=== PATIENT | female | born 1940 | race Caucasian/White ===

== ENCOUNTER 2017-06-18 20:14 | Inpatient (IN) | payer OTHER ==
[2017-06-18 21:04] LABS: #Eosinphils 0.2 thou/uL (0.0-0.7); #Lymphocytes 2.4 thou/uL (1.20-3.40); #Monocytes 0.7 thou/uL (0.11-0.59); #Neutrophils 5.7 thou/uL (1.40-6.50); %Eosinophils 2.1 % (0.0-10.0); %Lymphocytes 26.9 % (21.0-51.0); %Monocytes 7.2 % (0.0-10.0); Hematocrit 33.3 % (36.0-47.0); Mean Platelet Volume 9.2 fL (7.4-10.4); Red Blood Cell (RBC) Count 3.85 mill/uL (4.20-5.40)
[2017-06-18 21:26] LABS: ALT (SGPT) 16 U/L (8-55); AST (SGOT) 33 U/L (5-34); Alkaline Phosphatase 59 U/L (40-150); Anion Gap 13 mmol/L (10-20); BUN (Urea Nitrogen) 12 mg/dL (9.8-20.1); Bilirubin, Total 0.4 mg/dL (0.2-1.2); Calc. Creatinine Clearance 0 mL/min (70-130); Calcium 8.2 mg/dL (7.8-10.44); Carbon Dioxide 31 mmol/L (23-31); Chloride 100 mmol/L (98-107); Estimated GFR-MDRD 57; Globulin 3.2 g/dL (2.4-3.5); Protein, Total 6.6 g/dL (6.0-8.3)
[2017-06-18 21:29] LABS: Troponin I 0.032 ng/mL (< 0.028)
--- NOTE | 2017-06-18 21:32 | RAD ---
CHEST ONE VIEW: History: Chest pain. Comparison: 08-02-14 FINDINGS: Cardiac silhouette is magnified by projection. Pulmonary vasculature is unremarkable. Mediastinum is midline with post-operative changes and a dual-lead left subclavian cardiac electronic device. No lob ar consolidation or pneumothorax are apparent. Overlying defibrillator patches obscure detail. IMPRESSION: No active cardiopulmonary abnormalities are demonstrated. POS: [facility]
[2017-06-18] MEDS ORDERED: Potassium Chloride 20 MEQ TAB ONE (23:07)
[2017-06-18] MEDS ORDERED: Potassium Chloride 20 MEQ/100 ML PREMIX BAG ONE (23:07)
[2017-06-18] MEDS ORDERED: Magnesium Sulfate 2 GM/100 ML BAG ONE (23:25)
[2017-06-19 00:47] VITALS: BMI 37.0
[2017-06-19] MEDS ORDERED: Acetaminophen 325 MG TAB PO PRN (00:51)
[2017-06-19] MEDS ORDERED: Ondansetron ODT 4 MG TAB PO PRN (00:51)
[2017-06-19 01:26] LABS: Troponin I 0.054 ng/mL (< 0.028)
[2017-06-19] MEDS: Zolpidem Tartrate 5 MG TAB PO PRN ×2 (01:47→20:28)
--- NOTE | 2017-06-19 02:54 | HP-2 ---
DATE OF SERVICE: 06/18/2017 DATE OF ADMISSION: 06/18/2017 LOCATION: [facility] in [place], [place]. COSIGNER: Kamala Odell M.D. CODE STATUS: FULL CODE. PRIMARY CARE PHYSICIAN: Hafsa Bajwa M.D. ATTENDING PHYSICIAN: Kamala Odell M.D. RESIDENT PHYSICIAN: Mario Polanco DO HISTORY: Provided by the patient. SPECIALIST: Cardiology, Amanda Diaz M.D. CHIEF COMPLAINT: Weakness, fatigue, possible syncopal episode. HISTORY OF PRESENT ILLNESS: The patient is a 77-year-old female with a past medical history of CHF, hyperlipidemia who presents with a history of feeling weak, tired, and a possible syncopal episode. The patient states she was sitting at home and had to go to the bathroom, was walking to the commode and the next thing she remembers she was sitting on the commode. Denies trauma, denies fall. After this episode, the patient called 911 at which point she was taken by EMS to [facility]. En route, the patient was noted to have bradycardic episodes in the high 20s up to 37 and was pale and c lammy at that time. She does have a history of a pacemaker, which was placed approximately 5 years a go and has had no issues with the pacemaker to this time. Additionally, she does take furosemide sherman ly and is supposed to be taking a potassium supplement; however, she reports that she has not taken a ny potassium supplement in over a week. In the ER, she was noted to have numerous PVCs on her EKG an d had a heart rate in the upper 30s. The ER physician did contact [employer], the maker of the pacer device, who stated that with the numerous PVCs, it can short circuit the pacemaker. Once the patien t was lying comfortably in bed, the PVCs resolved and her rate returned to 60-70 with complete resolu tion of her symptoms. In the ER, the patient was given 2 grams of mag sulfate and 40 mEq of potassiu m chloride. PAST MEDICAL HISTORY: As stated above. PAST SURGICAL HISTORY: Left total knee replacement, hysterectomy, and bilateral oophorectomy. ALLERGIES: The patient is allergic to ASPIRIN, IBUPROFEN. MEDICATIONS: 1. Zaleplon 10 mg p.o. at bedtime. 2. Warfarin 5 mg p.o. daily. 3. Rosuvastatin 5 mg daily. 4. Propranolol 80 mg daily. 5. Potassium chloride 40 mEq p.o. every other day. 6. Zofran 4 mg p.o. q.8 h. as needed. 7. Singulair 10 mg p.o. at bedtime. 8. Lisinopril 40 mg p.o. daily. 9. Hydrocodone 1-2 tabs p.o. q.4 h. p.r.n. for pain. 10. Gabapentin 3 capsules p.o. at bedtime. 11. Furosemide, unknown dose 2 tabs p.o. q.a.m. as needed. 12. Liliana 90 mg p.o. daily. 13. Nexium 40 mg p.o. b.i.d. 14. Lovenox 60 mg subcu b.i.d. 15. Multaq 400 mg p.o. b.i.d. with meals. 16. Diltiazem 240 mg p.o. daily. 17. Cetirizine 10 mg p.o. daily. FAMILY HISTORY: Deferred. SOCIAL HISTORY: Nonsmoker, nondrinker, no drugs. REVIEW OF SYSTEMS: General: The patient denies fever, chills, night sweats. Complains of fatigue. Eyes: Denies visio n changes or eye pain. ENT: Denies nasal congestion, rhinorrhea, sore throat. Respiratory: Denies cough, congestion, shortness of breath or exercise intolerance. Cardiovascular: Denies chest pain, palpitations, edema, and orthopnea. Gastrointestinal: The patient complains of intermittent nausea , but reports this is a chronic issue. Denies vomiting, diarrhea, constipation, abdominal pain, GI b leeding. Genitourinary: Denies incontinence, dysuria, polyuria. Skin: No rashes or lesions. Musc uloskeletal: Denies pain, tenderness, arthritis, or arthralgias. Neurologic: Does complain of weak ness, fatigue, and questionable syncopal episode. PHYSICAL EXAMINATION: VITAL SIGNS: Blood pressure 157/67, pulse 60 beats per minute. Respiratory rate 18 breaths per hugo te, pulse ox 90% on 1.5 liters nasal cannula. Current weight 86 kilograms. GENERAL: The patient is alert and oriented, no acute distress. Well-developed, well-nourished, and appropriately interactive. EYES: Pupils are equal, round, and reactive to light with accommodation. Extraocular muscles are in tact. Conjunctivae is within normal limits. ENT: Oropharynx is within normal limits. NECK: Supple, without lymphadenopathy. No thyromegaly. No evidence for JVD or hepatojugular reflux . CARDIOVASCULAR: Regular rate and rhythm. No murmurs, rubs or gallops. Radial pulse 2+. Pedal puls e 2+. RESPIRATORY: Normal effort, no retractions. LUNGS: Clear to auscultation bilaterally. SKIN: Warm and dry. No cyanosis. ABDOMEN: Soft, nontender, normoactive bowel sounds, no masses, distention or organomegaly. EXTREMITIES: No clubbing, cyanosis. There is 2+ bilateral pitting edema of the lower extremities. MUSCULOSKELETAL: Structure within normal limits. Tone within normal limits. NEUROLOGIC: No focal deficits. GCS 15. PSYCHIATRIC: Appropriately interactive. LABORATORY DATA: Hemoglobin 10.7, hematocrit 33.3, white blood cell count 9.0, platelets 176. Sodiu m 141, potassium 2.7, chloride 100, bicarbonate 31, BUN 12, creatinine 0.95, glucose 178, calcium 8.2 , total protein 6.6, albumin 3.4, AST 33, ALT 16, alkaline phosphatase 59, total bilirubin 0.4, magne sium 1.1. Troponin I 0.032, CK-MB 1. BNP 490.3. Chest x-ray showed no acute cardiopulmonary process. EKG showed numerous PVCs which subsequently res olved on later EKG. ASSESSMENT AND PLAN: 1. Bradycardia. We will admit to telemetry. Continue to monitor overnight. This is likely seconda ry to the numerous premature ventricular contractions that were present previously. The premature ve ntricular contractions are likely caused by the patient's hypokalemia and hypomagnesemia and we will replace those accordingly. The pacer device was interrogated and was found to be functioning properl y. We will consult Cardiology in the morning. We will check a TSH, phosphorus, magnesium and a fast ing lipid profile in the morning. 2. Hypokalemia, 40 mEq of potassium was provided in the ER. We will recheck potassium level 4 hours after the last dose was administered. 3. Hypomagnesemia. Magnesium 1.1. The patient was given 2 grams of mag sulfate in the ER. We will recheck 4 hours after the last dose of magnesium was given. 4. Congestive heart failure. BNP 490.3. A 2+ pitting edema in bilateral lower extremities. The milvia birgit reports that she had an echocardiogram performed in February of this year at Dr. Diaz' office. W e will attempt to get those records in the morning. Currently, the patient shows no signs of acute h eart failure exacerbation. 5. Elevated troponins 0.032. We will trend troponins. This is likely secondary to demand ischemia from the bradycardic episode. We will trend. 6. Anemia. Hemoglobin 10.7, this is stable from her prior admission. We will repeat a CBC and tren d and watch for any acute changes. DISPOSITION AND LENGTH OF HOSPITAL STAY: Greater than or equal to 2 days. Patient is stable. Symptomatic medication will be provided. History and physical exam as well as management discussed with Dr. Kamala Odell who agrees with the above history and physical exam as well as assessment and plan, unless otherwise noted in her add endum.
[2017-06-19 05:27] LABS: #Lymphocytes 2.1 thou/uL (1.20-3.40); #Monocytes 0.4 thou/uL (0.11-0.59); #Neutrophils 3.5 thou/uL (1.40-6.50); %Basophils 0.7 % (0.0-1.0); %Eosinophils 0.5 % (0.0-10.0); %Lymphocytes 34.9 % (21.0-51.0); %Monocytes 6.2 % (0.0-10.0); Hematocrit 31.6 % (36.0-47.0); Mean Platelet Volume 9.4 fL (7.4-10.4); Red Blood Cell (RBC) Count 3.63 mill/uL (4.20-5.40)
[2017-06-19 05:32] LABS: Hemoglobin A1c 5.7 % (4.0-6.0)
[2017-06-19 05:46] LABS: PTT 48.7 SEC (22.9-36.1); Prothrombin Time 31.3 SEC (12.0-14.7)
[2017-06-19 05:49] LABS: Troponin I 0.057 ng/mL (< 0.028)
[2017-06-19 05:55] LABS: Anion Gap 9 mmol/L (10-20); BUN (Urea Nitrogen) 11 mg/dL (9.8-20.1); Calc. Creatinine Clearance 78 mL/min (70-130); Calcium 8.3 mg/dL (7.8-10.44); Carbon Dioxide 33 mmol/L (23-31); Chloride 102 mmol/L (98-107); Cholesterol 110 mg/dl (< 200 Desired); Estimated GFR-MDRD 70; LDL Cholesterol, Calculated 58 mg/dL; Magnesium 1.8 mg/dL (1.6-2.6); Phosphorus 3.2 mg/dL (2.3-4.7)
--- NOTE | 2017-06-19 06:15 | PDOC.FM ---
- Subjective Subjective: Pt seen at bedside in NAD. NO overnight, pt denies CP, SOB, abd pain, NVD. - Objective MAR Reviewed: Yes Vital Signs & Weight: Vital Signs (12 hours) Temp Pulse Resp BP Pulse Ox 06/19/17 04:45 60 18 92 L 06/19/17 00:45 98.3 F 60 18 92 L 06/19/17 00:20 98.3 F 60 18 157/67 H 92 L Weight Weight 86.001 kg Result Diagrams: 06/19/17 04:18 06/19/17 04:18 <Petros Durant - Last Filed: 06/19/17 07:41> - Objective Vital Signs & Weight: Vital Signs (12 hours) Temp Pulse Resp BP BP Pulse Ox 06/19/17 15:30 98.2 F 74 16 175/79 H 94 L 06/19/17 12:00 98 F 64 16 167/72 H 94 L 06/19/17 08:32 73 181/77 H 06/19/17 08:00 97.5 F L 62 18 191/74 H 93 L 06/19/17 04:45 60 18 92 L Weight Weight 86.001 kg I&O: 06/18/17 06/19/17 06/20/17 06:59 06:59 06:59 Intake Total 480 Output Total 400 Balance 80 Result Diagrams: 06/19/17 04:18 06/19/17 12:06 <Kamala Odell - Last Filed: 06/19/17 16:25> Phys Exam - Physical Examination Constitutional: NAD HEENT: moist MMs Neck: full ROM Respiratory: no wheezing, clear to auscultation bilateral Cardiovascular: no rub bradycardic on exam, HR 55 Gastrointestinal: soft, positive bowel sounds Musculoskeletal: pulses present Neurological: non-focal, moves all 4 limbs Psychiatric: normal affect, A&O x 3 Skin: cap refill <2 seconds <Petros Durant - Last Filed: 06/19/17 07:41> Dx/Plan (1) Bradycardia Code(s): R00.1 - BRADYCARDIA, UNSPECIFIED Status: Acute Plan: -pt presented for feelings of weakness and possible presyncopal episode while at home in bathroom -per reports, pt had transient bradycardia in EMS transport with HR 20s-37 -pt has hx of CHF, HTN, afib, AVR on coumadin -on presentation pt was found to have K of 2.5 and Mg 1.1 which were repleted -etiology of bradycardia possibly related to chronic conditions (CHF, cardiomegaly, HTN, etc.), pacemaker device failure, medication SE (pt on beta blockers, opiates, and sleep agents at home), or autonomically mediated via vasovagal response in bathroom -pacemaker interrogated and reported to be functionally properly -pt admitted to telemetry for continued monitoring. overnight pt had HR range from 30s-60s with majority in 50-60 range. -hold home propranolol, diltiazem, opiates, multaq, & gabapentin -review of EKG appears to r/o second or third degree block -consider cardiology consult this AM -continue to monitor and replete electrolytes as needed (2) Hypokalemia Code(s): E87.6 - HYPOKALEMIA Status: Acute Plan: -2.7 on presentation up to 3.4 this AM -replete via PO KCl and repeat BMP this afternoon (3) Hypomagnesemia Code(s): E83.42 - HYPOMAGNESEMIA Status: Acute Plan: -1.1 on presentation, up to 1.8 s/p repletion -recheck this afternoon (4) Elevated troponin Code(s): R74.8 - ABNORMAL LEVELS OF OTHER SERUM ENZYMES Status: Acute Plan: -slightly upward trend -continue to trend -no obvious EKG or symptomatic concerns for acute MN (5) H/O mechanical aortic valve replacement Code(s): Z95.2 - PRESENCE OF PROSTHETIC HEART VALVE Status: Chronic Plan: -on warfarin, therapeutic INR 2.9 (6) Pacemaker Code(s): Z95.0 - PRESENCE OF CARDIAC PACEMAKER Status: Acute (7) HLD (hyperlipidemia) Code(s): E78.5 - HYPERLIPIDEMIA, UNSPECIFIED Status: Chronic (8) HTN (hypertension) Code(s): I10 - ESSENTIAL (PRIMARY) HYPERTENSION Status: Chronic QualifierTitle: Hypertension type: unspecified Qualified Code(s): I10 - Essential (primary) hypertension Plan: -slightly elevated this AM but will hold antiHTN agents at this time and continue to monitor closely -can likely continue lisinopril if BP continue to be elevated - Plan Plan: dispo: Pt doing well. Review of panel monitor shows occasional episodes of bradycardia into 30s. Will consider cardiology consult this AM, attempt to obtain recent records from [facility]'s office and continue to monitor closely. Recheck electrolytes this afternoon. <Petros Durant - Last Filed: 06/19/17 07:41> Attending Addendum - Attending Addendum I personally evaluated the patient and discussed the management with Dr. Durant. I agree with the History, Examination, Assessment and Plan documented above with any addition or exceptions noted below. The patient was bradycardic on arrival. PVC's have slowed and heart rate is up to 50-60's. Hold bp meds that control heart rate. Cardiology will be consulted. <Kamala Odell - Last Filed: 06/19/17 16:25>
[2017-06-19] MEDS ORDERED: Potassium Chloride 20 MEQ TAB PO SCH (06:30)
[2017-06-19 07:38] LABS: Troponin I 0.047 ng/mL (< 0.028)
[2017-06-19] MEDS ORDERED: hydrALAZINE 20 MG/ML VIAL SLOW IVP SCH (08:00)
[2017-06-19] MEDS: Famotidine 20 MG TAB PO SCH ×2 (08:31→20:28)
[2017-06-19] MEDS: Lisinopril 20 MG TAB PO SCH (08:48)
[2017-06-19] MEDS ORDERED: Non-Formulary Item 1 EACH (Lisinopril [Lisinopril] 40 MG) PO SCH (09:00)
--- NOTE | 2017-06-19 11:00 | ADD-HP ---
DATE OF SERVICE: 06/19/2017 CHIEF COMPLAINT: Syncope, weakness, and fatigue. HISTORY OF PRESENT ILLNESS: The patient is a 77-year-old female with past medical history of CHF, hy perlipidemia, and atrial fibrillation with pacemaker placement who presented to the ER after possible syncopal episode. She states she was sitting up on the couch watching TV when she started feeling l martín she was going to pass out. She noted that she may need to go to restroom. She started walking i n that way and the next thing she remember she woke up was she was on the toilet. She does not remem adenike hitting anything at that time. EMS was called and noted that her pulse was in the 20s and 30s. She had a couple of episodes where she felt like she was going to pass out again. The patient was br ought to the ER. I noticed that she was having multiple PVCs on her EKG. Per the ER records, they c ontacted [employer] who said that she is having multiple PVCs, but her pacemaker may not be able to p ick that up and that is why she is still low. The patient's heart rate came up to the 50s and 60s, a nd she has been stable overnight. Cardiology is being consulted for further evaluation. We will cur rently hold her medications that are for rate control. We have restarted her lisinopril this morning . We will await further management after Cardiology recommendations. Dr. Polanco and I have personal ly discussed the history, physical, assessment, and plan for this patient and I have repeated pertine nt portions with myself. I agree with this documentation appreciated. Please see his dictation.
[2017-06-19 12:50] LABS: Anion Gap 12 mmol/L (10-20); BUN (Urea Nitrogen) 11 mg/dL (9.8-20.1); Calc. Creatinine Clearance 80 mL/min (70-130); Calcium 8.9 mg/dL (7.8-10.44); Carbon Dioxide 29 mmol/L (23-31); Chloride 103 mmol/L (98-107); Estimated GFR-MDRD 72; Magnesium 1.9 mg/dL (1.6-2.6)
[2017-06-19] MEDS ORDERED: hydrALAZINE 20 MG/ML VIAL SLOW IVP PRN (13:45)
--- NOTE | 2017-06-19 14:50 | CON ---
DATE OF CONSULTATION: 06/19/2017 REASON FOR CONSULTATION: Presyncope. HISTORY OF PRESENT ILLNESS: Ms. Dickey is a pleasant 77-year-old woman who is a patient of Dr. Adriel Diaz. She states she became lightheaded and dizzy. She states she went to the bathroom where she f elt she is going to pass out. She has had difficulty with low blood pressure recently. She is on di uretic therapy. EMS was called and she was subsequently admitted. Pacemaker was interrogated and did not suggest significant dysrhythmias. PAST MEDICAL HISTORY: Atrial fibrillation, hyperlipidemia, hypertension, status post pacemaker impla ntation, mechanical AVR, bilateral salpingo-oophorectomy, peptic ulcer disease, acid reflux, migraine headaches, total abdominal hysterectomy, hemorrhoidectomy, lumpectomy, breast cancer, seasonal aller gies. ALLERGIES: None. HOME MEDICATIONS: Include probiotic, Zyrtec, Sonata, ICaps, propranolol, Crestor, Coumadin, Singulai r, Lasix, lisinopril, Fexofenadine, Nexium, Sawyer 3, Multaq. REVIEW OF SYSTEMS: Ten point review of systems is reviewed and as above, otherwise negative. PHYSICAL EXAMINATION: GENERAL: Patient is a pleasant female who is in no acute distress. The patient appears her stated a ge. VITAL SIGNS: Blood pressure 167/72, pulse 64, temperature 98. NEUROLOGIC: The patient is alert and oriented times 3 with no focal neurologic deficits. HEENT: Sclerae without icterus. Mouth has moist mucous membranes with normal pallor. NECK: No JVD. Carotid upstroke brisk. No bruits bilaterally. LUNGS: Clear to auscultation with unlabored respirations. BACK: No scoliosis or kyphosis. CARDIAC: Regular rate and rhythm with normal S1 and S2. No S3 or S4 noted. No significant rubs, mu rmurs, thrills, or gallops noted throughout the precordium. PMI is not displaced. There is no jesus alberto ternal heave. ABDOMEN: Soft, nontender, nondistended. No peritoneal signs present. No hepatosplenomegaly. No ab normal striae. EXTREMITIES: 2+ femoral and 2+ dorsalis pedis pulses. No cyanosis, clubbing, or edema. SKIN: No gross abnormalities. PERTINENT LABORATORY DATA: Initial potassium of 2.7 and magnesium of 1.1. IMPRESSION: 1. Presyncope. 2. Chronic atrial fibrillation. RECOMMENDATIONS: From a CV standpoint, it does not appear this is dysrhythmia. This may be related to hypomagnesemia versus hypokalemia versus volume contraction. She has been on Lasix therapy in the past. Her last echo in the office dated 05/12/2017 with LVEF 50%-55%. Moderate to severe diastolic dysfunction in addition to mild pulmonary hypertension. At this point, we will treat blood pressure aggressively. We will try to hold diuretic therapy for now. We will continue to monitor over the n ext 24 hours. If stable, would be okay for discharge and follow up as an outpatient.
[2017-06-19] MEDS ORDERED: Furosemide 20 MG TAB PO PRN (19:42)
[2017-06-19] MEDS ORDERED: Loratadine 10 MG TAB PO SCH (20:00)
[2017-06-19] MEDS: Montelukast Sodium 10 mg Tablet PO SCH (20:27)
[2017-06-19] MEDS: Gabapentin 300 MG CAP PO SCH (20:28)
[2017-06-19] MEDS: Fish Oil 1,000 MG CAP PO SCH (20:30)
[2017-06-19] MEDS ORDERED: ZALEPLON 10 MG PO SCH (21:00)
[2017-06-20 05:33] LABS: Prothrombin Time 24.8 SEC (12.0-14.7)
[2017-06-20 06:06] LABS: Anion Gap 9 mmol/L (10-20); BUN (Urea Nitrogen) 9 mg/dL (9.8-20.1); Calc. Creatinine Clearance 87 mL/min (70-130); Calcium 8.8 mg/dL (7.8-10.44); Carbon Dioxide 30 mmol/L (23-31); Chloride 106 mmol/L (98-107); Estimated GFR-MDRD 77
[2017-06-20] MEDS ORDERED: Potassium Chloride 20 MEQ TAB PO SCH (08:00)
[2017-06-20] MEDS: Lisinopril 20 MG TAB PO SCH (08:10)
[2017-06-20] MEDS: Lactinex Tablet PO SCH (08:10)
[2017-06-20] MEDS: Fish Oil 1,000 MG CAP PO SCH ×2 (08:11→20:00)
[2017-06-20] MEDS: Famotidine 20 MG TAB PO SCH ×2 (08:11→20:02)
[2017-06-20] MEDS ORDERED: Dronedarone HCl 400 MG TAB PO SCH ×2 (10:30→20:00)
--- NOTE | 2017-06-20 12:29 | PDOC.FM ---
- Subjective Subjective: Patient reports doing well overnight, no complaints. Denies CP, SOB, weakness, N /V. - Objective MAR Reviewed: Yes Vital Signs & Weight: Vital Signs (12 hours) Temp Pulse Resp BP Pulse Ox 06/20/17 11:28 98.1 F 65 18 145/70 H 91 L 06/20/17 10:52 65 06/20/17 08:00 98.1 F 65 18 91 L 06/20/17 07:27 98.1 F 65 18 167/71 H 91 L 06/20/17 04:00 67 18 175/74 H 93 L Weight Weight 87.77 kg I&O: 06/19/17 06/20/17 06/21/17 06:59 06:59 06:59 Intake Total 480 960 Output Total 400 1400 Balance 80 -440 Result Diagrams: 06/19/17 04:18 06/20/17 05:12 <Ravindra Aguayo - Last Filed: 06/20/17 12:27> - Objective Vital Signs & Weight: Vital Signs (12 hours) Temp Pulse Resp BP Pulse Ox 06/20/17 11:28 98.1 F 65 18 145/70 H 91 L 06/20/17 10:52 65 06/20/17 08:00 98.1 F 65 18 91 L 06/20/17 07:27 98.1 F 65 18 167/71 H 91 L Weight Weight 87.77 kg I&O: 06/19/17 06/20/17 06/21/17 06:59 06:59 06:59 Intake Total 480 960 Output Total 400 1400 Balance 80 -440 Result Diagrams: 06/19/17 04:18 06/20/17 05:12 <Kamala Odell - Last Filed: 06/20/17 17:43> Phys Exam - Physical Examination Constitutional: NAD HEENT: moist MMs, oral pharynx no lesions Neck: no JVD, full ROM Respiratory: no wheezing, clear to auscultation bilateral Cardiovascular: RRR, no significant murmur Gastrointestinal: soft, positive bowel sounds Musculoskeletal: pulses present Neurological: normal sensation, moves all 4 limbs Psychiatric: normal affect, A&O x 3 <Ravindra Aguayo - Last Filed: 06/20/17 12:27> Dx/Plan (1) Bradycardia Code(s): R00.1 - BRADYCARDIA, UNSPECIFIED Status: Acute Plan: Cardiology consulted, recs greatly appreciated. Improved overnight, all measurements >60. Will restart diltiazem, multaq and reevaluate VS later today, tomorrow to ensure no bradycardia (2) Elevated troponin Code(s): R74.8 - ABNORMAL LEVELS OF OTHER SERUM ENZYMES Status: Acute (3) Hypokalemia Code(s): E87.6 - HYPOKALEMIA Status: Acute Plan: improved today (4) Hypomagnesemia Code(s): E83.42 - HYPOMAGNESEMIA Status: Acute (5) Pacemaker Code(s): Z95.0 - PRESENCE OF CARDIAC PACEMAKER Status: Acute Plan: has been interrogated and was reported as being normal by cardiology (6) H/O mechanical aortic valve replacement Code(s): Z95.2 - PRESENCE OF PROSTHETIC HEART VALVE Status: Chronic (7) HLD (hyperlipidemia) Code(s): E78.5 - HYPERLIPIDEMIA, UNSPECIFIED Status: Chronic (8) HTN (hypertension) Code(s): I10 - ESSENTIAL (PRIMARY) HYPERTENSION Status: Chronic QualifierTitle: Hypertension type: unspecified Qualified Code(s): I10 - Essential (primary) hypertension - Plan Plan: will plan to monitor closely overnight and reevaluate in the morning. If stable tomorrow morning, possible d/c tomorrow <Ravindra Aguayo - Last Filed: 06/20/17 12:27> Attending Addendum - Attending Addendum I personally evaluated the patient and discussed the management with Dr. Aguayo. I agree with the History, Examination, Assessment and Plan documented above with any addition or exceptions noted below. The patient's heart rate has remained stable but bp is elevated. Will restart diltiazem but monitor today to ensure bradycardia doesn't return. <Kamala Odell - Last Filed: 06/20/17 17:43>
--- NOTE | 2017-06-20 16:57 | PDOC.CTH ---
Cardiology Progress Note - Subjective She is doing well. No new issues or concerns. - Objective Vital Signs Temp Pulse Resp BP Pulse Ox 06/20/17 11:28 98.1 F 65 18 145/70 H 91 L 06/20/17 10:52 65 06/20/17 08:00 98.1 F 65 18 91 L 06/20/17 07:27 98.1 F 65 18 167/71 H 91 L Weight 193 lb 8 oz 06/19/17 06/20/17 06/21/17 06:59 06:59 06:59 Intake Total 480 960 Output Total 400 1400 Balance 80 -440 - Physical Examination General/Neuro: alert & oriented x3, NAD Neck: no JVD present Lungs: unlabored respirations Heart: other: (Irreg) Abdomen: NT/ND Extremities: other: (no edema) - Telemetry Telemetry Rhythm: Underl Afib, paced. - Labs Result Diagrams: 06/19/17 04:18 06/20/17 05:12 Troponin/CKMB CK-MB (CK-2) 1.1 ng/mL (0-6.6) 06/19/17 07:03 Troponin I 0.047 ng/mL (< 0.028) H 06/19/17 07:03 - Assessment/Plan 1. Pre syncope 2. Chronic afib 3. S/P PPM on the past 4. S/P Mechanical AVR PLAN: - Recent echo with normal functioning mechanical AVR - Likely non cardiac cause of presyncope. - No new recs.
[2017-06-20] MEDS ORDERED: Loratadine 10 MG TAB PO SCH (17:00)
[2017-06-20] MEDS ORDERED: Warfarin Sodium 5 MG TAB PO SCH (20:00)
[2017-06-20] MEDS: Gabapentin 300 MG CAP PO SCH (20:02)
[2017-06-20] MEDS: Montelukast Sodium 10 mg Tablet PO SCH (20:03)
[2017-06-20] MEDS: Zolpidem Tartrate 5 MG TAB PO PRN (20:03)
[2017-06-21 06:09] LABS: Prothrombin Time 21.7 SEC (12.0-14.7)
[2017-06-21 06:27] LABS: Anion Gap 9 mmol/L (10-20); BUN (Urea Nitrogen) 10 mg/dL (9.8-20.1); Calc. Creatinine Clearance 77 mL/min (70-130); Calcium 8.9 mg/dL (7.8-10.44); Carbon Dioxide 29 mmol/L (23-31); Chloride 105 mmol/L (98-107); Estimated GFR-MDRD 69
[2017-06-21 07:12] VITALS: BP 187/81; TEMP 98.4
[2017-06-21] MEDS: Lisinopril 20 MG TAB PO SCH (07:59)
[2017-06-21] MEDS: Lactinex Tablet PO SCH (07:59)
[2017-06-21] MEDS: Fish Oil 1,000 MG CAP PO SCH (08:00)
[2017-06-21] MEDS: Famotidine 20 MG TAB PO SCH (08:00)
[2017-06-21] MEDS ORDERED: Dronedarone HCl 400 MG TAB PO SCH (08:00)
--- NOTE | 2017-06-21 09:42 | PDOC.FM ---
- Subjective Subjective: Patient doing well overnight. No complaints or concerns. Endorses voiding/BM. Denies CP, SOB, weakness, N/V, dizziness. - Objective MAR Reviewed: Yes Vital Signs & Weight: Vital Signs (12 hours) Temp Pulse Resp BP Pulse Ox 06/21/17 07:59 84 06/21/17 07:20 98.4 F 84 16 91 L 06/21/17 07:11 98.4 F 84 16 187/81 H 91 L 06/21/17 04:00 98.9 F 91 20 126/62 92 L 06/21/17 00:00 142/67 H Weight Weight 85.865 kg I&O: 06/20/17 06/21/17 06/22/17 06:59 06:59 06:59 Intake Total 960 1300 Output Total 1400 625 Balance -440 675 Result Diagrams: 06/19/17 04:18 06/21/17 05:31 <Ravindra Aguayo - Last Filed: 06/21/17 09:40> - Objective Vital Signs & Weight: Vital Signs (12 hours) Temp Pulse Resp BP Pulse Ox 06/21/17 07:59 84 06/21/17 07:20 98.4 F 84 16 91 L 06/21/17 07:11 98.4 F 84 16 187/81 H 91 L 06/21/17 04:00 98.9 F 91 20 126/62 92 L Weight Weight 85.865 kg I&O: 06/20/17 06/21/17 06/22/17 06:59 06:59 06:59 Intake Total 960 1300 Output Total 1400 625 Balance -440 675 Result Diagrams: 06/19/17 04:18 06/21/17 05:31 <Kamala Odell - Last Filed: 06/21/17 15:24> Phys Exam - Physical Examination Constitutional: NAD HEENT: moist MMs, oral pharynx no lesions Neck: no JVD, full ROM Respiratory: no wheezing, clear to auscultation bilateral Cardiovascular: RRR, no significant murmur Gastrointestinal: soft, non-tender, positive bowel sounds Musculoskeletal: no edema, pulses present Neurological: normal sensation, moves all 4 limbs Psychiatric: normal affect, A&O x 3 Skin: no rash, normal turgor <Ravindra Aguayo - Last Filed: 06/21/17 09:40> Dx/Plan (1) Bradycardia Code(s): R00.1 - BRADYCARDIA, UNSPECIFIED Status: Acute Plan: Cardiology consulted, recs greatly appreciated. HR continues to be >60 while adding multaq and diltiazem. Will plan to d/c home today with instructions to follow up with Dr. Diaz early this week. Patient agreed and said she would call Dr. Diaz tomorrow. (2) Elevated troponin Code(s): R74.8 - ABNORMAL LEVELS OF OTHER SERUM ENZYMES Status: Acute (3) Hypokalemia Code(s): E87.6 - HYPOKALEMIA Status: Acute (4) Hypomagnesemia Code(s): E83.42 - HYPOMAGNESEMIA Status: Acute (5) Pacemaker Code(s): Z95.0 - PRESENCE OF CARDIAC PACEMAKER Status: Acute Plan: has been interrogated and was reported as being normal by cardiology (6) H/O mechanical aortic valve replacement Code(s): Z95.2 - PRESENCE OF PROSTHETIC HEART VALVE Status: Chronic (7) HLD (hyperlipidemia) Code(s): E78.5 - HYPERLIPIDEMIA, UNSPECIFIED Status: Chronic (8) HTN (hypertension) Code(s): I10 - ESSENTIAL (PRIMARY) HYPERTENSION Status: Chronic QualifierTitle: Hypertension type: unspecified Qualified Code(s): I10 - Essential (primary) hypertension <Ravindra Aguayo - Last Filed: 06/21/17 09:40> Attending Addendum - Attending Addendum I personally evaluated the patient and discussed the management with Dr. Aguayo. I agree with the History, Examination, Assessment and Plan documented above with any addition or exceptions noted below. The patient has had no more bradycardia or symptoms or presyncope. She will be discharged today and will f/u with Dr. Diaz. <Kamala Odell - Last Filed: 06/21/17 15:24>
[2017-06-21] MEDS ORDERED: Warfarin Sodium 5 MG TAB PO SCH (17:00)
== END 2017-06-21 09:57 | disposition home or self-care (01) | DRG 310 ==
LOC: ERS 20:14 → 2NO 21:45
PROVIDERS: ADMIT Family Medicine; ATTEND Family Medicine
DX: R00.1 Bradycardia, unspecified (principal); I11.0 Hypertensive heart disease with heart failure; Z95.2 Presence of prosthetic heart valve; I49.3 Ventricular premature depolarization; I48.2 Chronic atrial fibrillation; R74.8 Abnormal levels of other serum enzymes; E83.42 Hypomagnesemia; E78.5 Hyperlipidemia, unspecified; R55 Syncope and collapse; E87.6 Hypokalemia; Z95.0 Presence of cardiac pacemaker; K21.9 Gastro-esophageal reflux disease without esophagitis; Z79.01 Long term (current) use of anticoagulants; R73.9 Hyperglycemia, unspecified; D50.9 Iron deficiency anemia, unspecified
CPT/HCPCS: 36415; 71010; 80048; 80053; 80061; 82553; 83036; 83735; 83880; 84100; 84443; 84484; 85025; 85610; 85730; 93005; 94760; 96365; 96368; A4216; J0360; J3475; J3480

== ENCOUNTER 2017-09-07 08:42 | Outpatient (CLI) | payer OTHER | END 2017-09-07 08:43 | disposition home or self-care (01) | LOC: BICMAMMO 08:42 | PROVIDERS: ATTEND Internal Medicine Hematology & Oncology | DX: Z08 Encounter for follow-up examination after completed treatment for malignant neoplasm (principal); Z85.3 Personal history of malignant neoplasm of breast | CPT/HCPCS: 77066; G0279 ==

== ENCOUNTER 2018-01-05 09:14 | Outpatient (CLI) | payer OTHER ==
[2018-01-05] MEDS ORDERED: ISOVUE-370 76%-LOCM 1 ML ONE (11:24)
== END 2018-01-05 09:15 | disposition home or self-care (01) ==
LOC: BICCT 09:14
PROVIDERS: ATTEND Internal Medicine Cardiovascular Disease
DX: I71.2 Thoracic aortic aneurysm, without rupture (principal); Z95.2 Presence of prosthetic heart valve
CPT/HCPCS: 71275; 74175; 82565

== ENCOUNTER 2018-03-08 09:01 | Outpatient (CLI) | payer OTHER | END 2018-03-08 09:02 | disposition home or self-care (01) | LOC: BICMAMMO 09:01 | PROVIDERS: ATTEND Internal Medicine Hematology & Oncology | DX: Z08 Encounter for follow-up examination after completed treatment for malignant neoplasm (principal); Z85.3 Personal history of malignant neoplasm of breast | CPT/HCPCS: G0279 ==

== ENCOUNTER 2018-07-28 10:46 | Inpatient (IN) | payer OTHER ==
[2018-07-28] MEDS ORDERED: Pantoprazole 40 MG VIAL ONE (12:13)
[2018-07-28] MEDS ORDERED: Ondansetron PF 4 MG/2 ML Vial ONE (12:13)
--- NOTE | 2018-07-28 12:13 | RAD ---
PA AND LATERAL CHEST: Date: 07/28/18 HISTORY: Cough. Abdominal pain. Nausea and vomiting. COMPARISON: 07/16/11. FINDINGS: Dual lead left subclavian cardiac pacemaking device remains in place. Postsurgical changes related to median sternotomy and aortic valve replacement are again seen. Cardiac silhouette is mildly enlarged . Vascular calcifications seen in thoracic aorta. The lungs are clear. There is an area of heterotopi c ossification seen adjacent to the right humeral head. Posterior costophrenic angles are excluded fr om view. IMPRESSION: 1. Mild cardiomegaly without overt CHF. 2. No acute cardiopulmonary process. POS: [facility]
[2018-07-28 12:19] LABS: Bilirubin Negative (Negative); Blood, Urine Negative (Negative); Clarity CLEAR (Clear); Glucose, Urine (Dipstick) Negative (Negative); Leukocyte Negative (Negative); Nitrite Negative (Negative); Protein, Urine (Dipstick) Negative (Neg-Trace); Specific Gravity, Urine 1.012 (1.002-1.036); Urobilinogen 0.2 mg/dL (0.2-1.0)
[2018-07-28 12:40] LABS: #Basophils 0.1 thou/uL (0.0-0.2); #Lymphocytes 1.5 thou/uL (1.20-3.40); #Monocytes 0.3 thou/uL (0.11-0.59); #Neutrophils 8.3 thou/uL (1.40-6.50); %Basophils 0.9 % (0.0-1.0); %Eosinophils 0.3 % (0.0-10.0); %Lymphocytes 14.6 % (21.0-51.0); %Monocytes 3.3 % (0.0-10.0); %Neutrophils 80.9 % (42.0-75.0); Hemoglobin 11.7 g/dL (12.0-16.0); Mean Corpuscular HGB CONC 33.6 g/dL (32.0-36.0); Mean Corpuscular Hemoglobin 30.1 pg (27.0-31.0); Mean Corpuscular Volume 89.7 fL (78.0-98.0); Mean Platelet Volume 9.4 fL (7.4-10.4); Platelet Count 171 thou/uL (130-400); RBC Distribution Width 12.2 % (11.5-14.5); White Blood Cell (WBC) Count 10.2 thou/uL (4.8-10.8)
[2018-07-28 12:44] LABS: PTT 52.3 SEC (22.9-36.1); Prothrombin Time 42.2 SEC (12.0-14.7)
[2018-07-28 12:53] LABS: INR-International Normal Ratio 4.4
[2018-07-28 14:06] LABS: Albumin 4.1 g/dL (3.4-4.8)
[2018-07-28 14:08] LABS: Chloride 108 mmol/L (98-107); Sodium 134 mmol/L (136-145)
[2018-07-28 14:09] LABS: Globulin 3.1 g/dL (2.4-3.5); Glucose 126 mg/dL (83-110); Protein, Total 7.2 g/dL (6.0-8.3)
[2018-07-28 14:10] LABS: Carbon Dioxide 15 mmol/L (23-31)
[2018-07-28 14:11] LABS: Anion Gap 17 mmol/L (10-20); Bilirubin, Total 0.3 mg/dL (0.2-1.2)
[2018-07-28 14:12] LABS: Alkaline Phosphatase 57 U/L (40-150); Calc. Creatinine Clearance 0 mL/min (70-130); Estimated GFR-MDRD 13
[2018-07-28 14:13] LABS: BUN (Urea Nitrogen) 42 mg/dL (9.8-20.1)
[2018-07-28 14:14] LABS: AST (SGOT) 24 U/L (5-34)
[2018-07-28 14:15] LABS: ALT (SGPT) 11 U/L (8-55); Lipase 79 U/L (8-78)
--- NOTE | 2018-07-28 15:00 | PDOC.FPRHP ---
- History of Present Illness Chief Complaint: abdominal pain, NVD History of Present Illness: This is an 78 yo F here for a 10 day hx of NVD and abdominal pain sent over from clinic - Dr. Bajwa - for suspected dehydration. Patient reports that she has had diarrhea, nonbloody. Patient states she has diarrhea chronically and that there has not been any change in frequency. She reports moderate nausea throughout the time and a few episodes of vomiting - had an episode three days ago as well as earlier today. Patient reports abdominal discomfort in the upper abdomen but is unable to describe the nature. Patient has had decreased PO intake over the last few days due to not feeling well. Patient denies fever, chills, or recent sick contacts. Patient denies chest or abdominal pain, SOB, LE swelling, vision changes, or urinary symptoms. Daughter is present at the bedside. ED Course: protonix 40mg IV, zofran 4mg IV, bentyl 20mg IM, 1L NS - Allergies/Adverse Reactions Allergies Allergy/AdvReac Type Severity Reaction Status Date / Time No Known Allergies Allergy Unverified 07/28/18 21:12 - Home Medications Medication Instructions Recorded Confirmed Type Calcium Carb,Lactate/Vit D3 300 mg PO DAILY 11/23/14 07/28/18 History [Calcet] Cetirizine HCl [Zyrtec] 10 mg PO 1700 11/23/14 07/28/18 History Esomeprazole Magnesium [NexIUM] 40 mg PO BID 11/23/14 07/28/18 History Fexofenadine HCl [Liliana] 90 mg PO DAILY 11/23/14 07/28/18 History Furosemide 2 tab PO QAM 11/23/14 07/28/18 History Lactobacillus Acidophilus 1 capsule PO BID 11/23/14 07/28/18 History [Probiotic] Lisinopril 20 mg PO DAILY 11/23/14 07/28/18 History Montelukast Sodium [Singulair] 10 mg PO HS 11/23/14 07/28/18 History Multivit-Min/FA/Lutein/Zeaxant 1 each PO DAILY 11/23/14 07/28/18 History [ICaps Eye Vitamin Multivitamin Formula] [place]-3 Acid Ethyl Esters [Lovaza] 2 cap PO BID 11/23/14 07/28/18 History Rosuvastatin [Crestor] 5 mg PO DAILY 11/23/14 07/28/18 History Warfarin Sodium [Coumadin] 5 mg PO DAILY@1700 11/23/14 07/28/18 History Zaleplon 10 mg PO HS 11/23/14 07/28/18 History Cholecalciferol (Vitamin D3) 1,000 unit PO Q3D 12/04/15 07/28/18 History [Vitamin D3] Diltiazem HCl [Cartia XT] 240 mg PO DAILY 12/04/15 07/28/18 History Dronedarone HCl [Multaq] 400 mg PO BID-WM 12/04/15 07/28/18 History Gabapentin 3 cap PO HS 03/26/17 07/28/18 History Potassium Chloride [K-Dur] 10 meq PO DAILY 03/26/17 07/28/18 History Magnesium Oxide [Magnesium] 400 mg PO DAILY 07/28/18 07/28/18 History Methylcellulose [Fiber Therapy] 500 mg PO BID 07/28/18 07/28/18 History Propranolol HCl 80 mg PO DAILY 07/28/18 07/28/18 History - History PMHx: atrial fibrillation s/p pacemaker, diverticulitis, HTN, CHF (EF 50-55% in apr 2017) PSHx: aortic artificial valve 1999, appendectomy, cholecystecomy, hysterectomy, right sided lumpectomy, pacemaker in 2004, FHx: non-contributory Social: lives at home, denies alcohol, smoking or drug use - Review of Systems General: reports: fatigue. denies: fever/chills Eyes: denies: eye pain, vision changes ENT: denies: nasal congestion, rhinorrhea Respiratory: denies: cough, congestion, shortness of breath Cardiovascular: denies: chest pain, palpitation Gastrointestinal: reports: nausea, vomiting, diarrhea. denies: constipation, abdominal pain, GI bleeding Genitourinary: denies: dysuria, polyuria Skin: denies: rashes, itching Musculoskeletal: denies: pain, arthritis/arthralgias Neurological: denies: numbness, syncope - Vital signs BP: 111/58 HR: 60 RR: 18 Tmax: xx Pox: 95 on% on RA Wt: 95.25kg - Physical Exam Constitutional: NAD, awake, alert and oriented, well developed HEENT: normocephalic and atraumatic, PERRLA, EOMI, grossly normal vision, grossly normal hearing -HEENT: MM dry Neck: supple, FROM Chest: no-tender to palpation, no lesions Heart: RRR -Heart: bilateral LE swelling, non pitting Lungs: CTAB, no respiratory distress, good air movement Abdomen: soft, non-tender, bowel sounds present Musculoskeletal: normal structure, ROM grossly normal Neurological: no focal deficit Skin: no rash/lesions, good turgor, capillary refill <2 seconds, no jaundice Heme/Lymphatic: no unusual bruising or bleeding Psychiatric: normal mood and affect, good judgment and insight, intact recent and remote memory FMR H&P: Results - Labs Result Diagrams: 07/29/18 05:16 07/29/18 05:16 Lab results: WBC 10.2 thou/uL (4.8-10.8) 07/28/18 12:19 Hgb 11.7 g/dL (12.0-16.0) L 07/28/18 12:19 Hct 35.0 % (36.0-47.0) L 07/28/18 12:19 MCV 89.7 fL (78.0-98.0) 07/28/18 12:19 Plt Count 171 thou/uL (130-400) 07/28/18 12:19 Neutrophils % 80.9 % (42.0-75.0) H 07/28/18 12:19 Sodium 134 mmol/L (136-145) L 07/28/18 12:19 Potassium 6.0 mmol/L (3.5-5.1) H 07/28/18 12:19 Chloride 108 mmol/L (98-107) H 07/28/18 12:19 Carbon Dioxide 15 mmol/L (23-31) L 07/28/18 12:19 BUN 42 mg/dL (9.8-20.1) H 07/28/18 12:19 Creatinine 3.47 mg/dL (0.6-1.1) H 07/28/18 12:19 Glucose 126 mg/dL (83-110) H 07/28/18 12:19 Lactic Acid 1.5 mmol/L (0.5-2.2) 07/28/18 12:19 Calcium 9.0 mg/dL (7.8-10.44) 07/28/18 12:19 Total Bilirubin 0.3 mg/dL (0.2-1.2) 07/28/18 12:19 AST 24 U/L (5-34) 07/28/18 12:19 ALT 11 U/L (8-55) 07/28/18 12:19 Alkaline Phosphatase 57 U/L (40-150) 07/28/18 12:19 Serum Total Protein 7.2 g/dL (6.0-8.3) 07/28/18 12:19 Albumin 4.1 g/dL (3.4-4.8) 07/28/18 12:19 Lipase 79 U/L (8-78) H 07/28/18 12:19 Urine Ketones Negative mg/dL (Negative) 07/28/18 12:00 Urine Blood Negative (Negative) 07/28/18 12:00 Urine Nitrite Negative (Negative) 07/28/18 12:00 Ur Leukocyte Esterase Negative (Negative) 07/28/18 12:00 - EKG Interpretation EKG: junctional rhythm, incomplete LBBB, prolonged QT (474) - no peaked T waves - Radiology Interpretation Chest x-ray Status: report reviewed by me (mild cardiomegaly, no acute process) FMR H&P: A/P - Problem List (1) TRISTAN (acute kidney injury) Current Visit: Yes Status: Acute Code(s): N17.9 - ACUTE KIDNEY FAILURE, UNSPECIFIED (2) Hyperkalemia Current Visit: Yes Status: Acute Code(s): E87.5 - HYPERKALEMIA (3) Dehydration Current Visit: No Status: Acute Code(s): E86.0 - DEHYDRATION (4) Diarrhea Current Visit: No Status: Acute Code(s): R19.7 - DIARRHEA, UNSPECIFIED (5) Diverticulitis large intestine Current Visit: No Status: Acute Code(s): K57.32 - DVTRCLI OF LG INT W/O PERFORATION OR ABSCESS W/O BLEEDING Qualifiers: Diverticulitis bleeding: without bleeding Diverticulitis complication: without perforation or abscess Qualified Code(s): K57.32 - Diverticulitis of large intestine without perforation or abscess without bleeding (6) GERD (gastroesophageal reflux disease) Current Visit: No Status: Acute Code(s): K21.9 - GASTRO-ESOPHAGEAL REFLUX DISEASE WITHOUT ESOPHAGITIS (7) Pacemaker Current Visit: No Status: Acute Code(s): Z95.0 - PRESENCE OF CARDIAC PACEMAKER (8) A-fib Current Visit: No Status: Chronic Code(s): I48.91 - UNSPECIFIED ATRIAL FIBRILLATION (9) H/O mechanical aortic valve replacement Current Visit: No Status: Chronic Code(s): Z95.2 - PRESENCE OF PROSTHETIC HEART VALVE (10) HLD (hyperlipidemia) Current Visit: No Status: Chronic Code(s): E78.5 - HYPERLIPIDEMIA, UNSPECIFIED (11) HTN (hypertension) Current Visit: No Status: Chronic Code(s): I10 - ESSENTIAL (PRIMARY) HYPERTENSION Qualifiers: Hypertension type: unspecified Qualified Code(s): I10 - Essential (primary ) hypertension - Plan Dehydration 2/2 gastroenteritis - recent hx of NVD and decreased PO intake - Will give mIVF - Flu pending TRISTAN on CKD - Cr 3.47, was 1.4 in May of this year likely 2/2 to dehydration status - Will give mIVF Hyperkalemia - K 6 on admission - likely 2/2 to dehydration status; EKG showed prolonged QT of 474, incomplete left BBB, junctional rhythm - no peaked T waves - Mg/Phos pending - Will hold home potassium supp - Will give mIVF - Will give kayexylate and recheck K at 1900 - Will continue to check K level and replace as needed Functional Diarrhea - baseline 3-4 loose stools/day - at baseline currently; no need to do stool studies at this time Hx of Afib, s/p pacemaker, on coumadin - Aware - INR 4.4 on admission; Will hold coumadin, recheck INR in AM - Will continue multaq and diltiazem Hx of aortic valve replacement - aware, no signs of infection, holding coumadin HTN - Will hold lisinopril/furosemide due to TRISTAN HLD - Aware will restart home meds - statin GERD - aware, will restart home meds CHF, present on admission - EF 50-55% - Will monitor fluid status w/ strict I/Os Diverticulosis - afebrile, no white count - no imaging at this time as patient not having any acute abdominal signs CODE: Full DISPO: admit to tele, monitor K and fluid status Case discussed with Dr. Kay FMR H&P: Upper Level - Pertinent history This is an 78 yo F with significant PMH incluidng pacemaker, dCHF (EF 50-55% in 2017 per chart review), and aortic valve replacement who comes in for evaluation of dehyrdation from clinic. She has had 3 episodes of vomiting in the last week non-bloody, associated with nausea. She denies fevers, chills, or sweats. She states she has had 3 episodes of diarrhea today which she describes as loose stools which are chronic, she states there is no change from her normal. She states he has not had anything to eat since yesterday because of the nausea. She reports "abdominal headache" states this is chronic and cannot charecterize it as a pain states it comes and goes but no change from normal. - Pertinent findings General: NAD, alert and oriented x3 HEENT: PERRLA, EOMI, normal sclera, oropharynx without erythema or exudate, TM clear with good light reflex bilaterally, canal is without erythema or lesion Neck: Supple. Full ROM. Heart/Cardiovascular System: Mechanical valve murmur. RRR. Cap refill < 3 seconds, good pulses in all extremities Lungs/Respiratory System: clear to auscultation bilaterally. No increased work of breathing. Room air. Abdomen/Gastro-Intestinal System: non-tender, normal bowel sounds, no masses, no organomegaly Extremeties: Warm extremities. No cyanosis. Non-pitting edema of the ankles bilaterally, states this is normal for her Neuro: No gross deficits appreciated. CN 2-12 grossly intact Psychiatry: Awake, Alert and cooperative with exam Skin/ Integumentory: No lesions, rashes, or ulcers Musculoskeletal: Full ROM, Strength 5/5 in all 4 extremities - Plan Date/Time: 07/28/18 1209 IRavindra, have evaluated this patient and agree with findings/plan as outlined by music industry intern resident. Pertinent changes/additions are listed here. #Hyperkalemia - kayexelate - s/p 1L bolus in ED, NS at 150ml/hr - re-check bmp at 1900 - check mag, phos # TRISTAN - Cr 3.47, base line 0.8-1.4 - Renal US - Dr. Ly consulted from ED, recs appreciated # Elevated INR - hold warfarin - re-check in AM # Nausea - zofran - check flu # CHF not in acute exacerbation - cautious rehydration - EF 50-55% in apr 2017 # Atrial fibrillation rate-controlled, Aortic valve replacement - hold warfarin - on multaq, diltiazem - tele PCP: Garett Fluids: NS 150ml/hr Diet: regular Code: full Dispo: 1-2 days Addendum - Attending - Attending Attestation Date/Time: 07/29/18 1231 I personally evaluated the patient and discussed the management with team. I saw patient on day of admission. I agree with and repeated the History, Examination, Assessment and Plan documented above with any addition or exceptions noted below. Soft history of decreased PO intake with some nausea. Her exam is unremarkable. NAD, very pleasant. RRR c murmur c/w valve replacement; CTAB s w /r/r. BS+, NTTP. Scant peripheral edema bilaterally with no palp cord or tenderness which she says is longstanding. Labs and imaging reviewed. TRISTAN with hyperkalemia could be 2/2 volume depletion vs her symptoms 2/2 her azotemia. D/c ACEI. Hydrate, recheck K. No acute ECG changes. If no improvement will plan on nephrology consultation, although the residents believe the ER consulted them. Hold coumadin as no active bleeding or symptoms.
[2018-07-28 16:19] LABS: Magnesium 2.2 mg/dL (1.6-2.6)
[2018-07-28] MEDS ORDERED: Ondansetron ODT 4 MG TAB PO PRN (19:48)
[2018-07-28] MEDS ORDERED: Acetaminophen 325 MG TAB PO PRN (19:48)
[2018-07-28] MEDS ORDERED: Acetaminophen 650 MG Suppository PR PRN (19:48)
[2018-07-28 19:52] VITALS: BMI 39.4
[2018-07-28] MEDS: Fish Oil 1,000 MG CAP PO SCH (20:44)
[2018-07-28] MEDS: Sodium Chloride 0.9% 1,000 ML IV SCH ×2 (20:44→21:01)
[2018-07-28] MEDS: Gabapentin 300 MG CAP PO SCH (20:44)
[2018-07-28] MEDS: Montelukast Sodium 10 mg Tablet PO SCH (20:44)
[2018-07-28] MEDS: Lactinex Tablet PO SCH (20:45)
[2018-07-28] MEDS: Zolpidem Tartrate 5 MG TAB PO PRN (20:45)
[2018-07-28] MEDS: Rosuvastatin 5 MG TAB PO SCH (20:45)
[2018-07-28] MEDS: Dronedarone HCl 400 MG TAB PO SCH (20:52)
[2018-07-28] MEDS ORDERED: ZALEPLON 10 MG PO SCH (21:00)
[2018-07-28 21:02] LABS: Anion Gap 13 mmol/L (10-20); BUN (Urea Nitrogen) 41 mg/dL (9.8-20.1); Calc. Creatinine Clearance 23 mL/min (70-130); Calcium 8.3 mg/dL (7.8-10.44); Carbon Dioxide 17 mmol/L (23-31); Estimated GFR-MDRD 15; Glucose 87 mg/dL (83-110); Potassium 5.5 mmol/L (3.5-5.1)
[2018-07-28 21:15] LABS: Chloride 111 mmol/L (98-107); Sodium 135 mmol/L (136-145)
--- NOTE | 2018-07-28 22:24 | ULT ---
BILATERAL RENAL ULTRASOUND COMPLETE: 07/28/18 HISTORY: 78-year-old female with history of new onset acute kidney insufficiency. FINDINGS: Right kidney measures 9.1 x 4.2 x 3.5 cm and contains 1 cm right renal cyst. The left kidney measures 10.3 x 4.2 x 4.3 cm. The bladder is empty. No hydronephrosis or perinephric process. IMPRESSION: Small right renal upper pole cyst. No hydronephrosis or other acute process. POS: [facility]
[2018-07-29 00:39] LABS: Anion Gap 14 mmol/L (10-20); BUN (Urea Nitrogen) 41 mg/dL (9.8-20.1); Calc. Creatinine Clearance 22 mL/min (70-130); Calcium 8.3 mg/dL (7.8-10.44); Carbon Dioxide 17 mmol/L (23-31); Chloride 113 mmol/L (98-107); Estimated GFR-MDRD 15; Glucose 86 mg/dL (83-110); Potassium 5.2 mmol/L (3.5-5.1); Sodium 139 mmol/L (136-145)
[2018-07-29] MEDS: Sodium Chloride 0.9% 1,000 ML IV SCH ×4 (06:00→20:54)
[2018-07-29 06:10] LABS: #Eosinphils 0.1 thou/uL (0.0-0.7); #Lymphocytes 1.7 thou/uL (1.20-3.40); #Monocytes 0.4 thou/uL (0.11-0.59); %Basophils 0.9 % (0.0-1.0); %Lymphocytes 32.4 % (21.0-51.0); %Monocytes 7.5 % (0.0-10.0); %Neutrophils 58.3 % (42.0-75.0); Hemoglobin 9.7 g/dL (12.0-16.0); Mean Corpuscular HGB CONC 33.4 g/dL (32.0-36.0); Mean Corpuscular Hemoglobin 30.8 pg (27.0-31.0); Mean Platelet Volume 9.4 fL (7.4-10.4); Platelet Count 124 thou/uL (130-400); RBC Distribution Width 12.3 % (11.5-14.5); Red Blood Cell (RBC) Count 3.17 mill/uL (4.20-5.40); White Blood Cell (WBC) Count 5.2 thou/uL (4.8-10.8)
[2018-07-29 06:11] LABS: PTT 53.3 SEC (22.9-36.1); Prothrombin Time 44.3 SEC (12.0-14.7)
[2018-07-29 06:12] LABS: INR-International Normal Ratio 4.7
[2018-07-29 06:25] LABS: Anion Gap 12 mmol/L (10-20); BUN (Urea Nitrogen) 41 mg/dL (9.8-20.1); Calc. Creatinine Clearance 23 mL/min (70-130); Calcium 8.2 mg/dL (7.8-10.44); Carbon Dioxide 18 mmol/L (23-31); Chloride 113 mmol/L (98-107); Estimated GFR-MDRD 16; Glucose 76 mg/dL (83-110); Potassium 5.3 mmol/L (3.5-5.1); Sodium 138 mmol/L (136-145)
[2018-07-29] MEDS ORDERED: Sodium Chloride 0.9% 10 ML ONE (08:20)
[2018-07-29] MEDS: Ondansetron PF 4 MG/2 ML Vial IVP PRN ×2 (08:40→16:50)
--- NOTE | 2018-07-29 08:44 | PDOC.FM ---
- Subjective Subjective: This morning patient states she slept well overnight. Denies cp, sob, or palpitations. States she is still having some nausea but zofran helped yesterday , denies vomiting. Had 4 episodes of diarrhea last night, a little more runny than her chronic diarrhea but she did receive a dose of kayexelate yesterday. Denies abd pain at this time. Feeling a little better overall. - Objective Vital Signs & Weight: Vital Signs (12 hours) Temp Pulse Resp BP Pulse Ox 07/29/18 07:25 97.9 F 67 17 123/52 L 96 07/29/18 04:00 97.8 F 62 20 104/46 L 93 L 07/28/18 23:09 62 20 108/51 L Weight Weight 95.708 kg I&O: 07/28/18 07/29/18 07/30/18 06:59 06:59 06:59 Intake Total 1440 Output Total 400 Balance 1040 Result Diagrams: 07/29/18 05:16 07/29/18 05:16 Phys Exam - Physical Examination Constitutional: NAD HEENT: PERRLA, moist MMs Neck: no nodes, full ROM Respiratory: no wheezing, clear to auscultation bilateral Cardiovascular: RRR mechanical heart valve Gastrointestinal: soft, non-tender, no distention, positive bowel sounds Musculoskeletal: pulses present non-pitting edema at ankles bilaterally Neurological: non-focal, moves all 4 limbs Lymphatic: no nodes Psychiatric: normal affect, A&O x 3 Skin: no rash, cap refill <2 seconds Dx/Plan (1) TRISTAN (acute kidney injury) Code(s): N17.9 - ACUTE KIDNEY FAILURE, UNSPECIFIED Status: Acute (2) Hyperkalemia Code(s): E87.5 - HYPERKALEMIA Status: Acute (3) Dehydration Code(s): E86.0 - DEHYDRATION Status: Acute (4) Diarrhea Code(s): R19.7 - DIARRHEA, UNSPECIFIED Status: Acute (5) Diverticulitis large intestine Code(s): K57.32 - DVTRCLI OF LG INT W/O PERFORATION OR ABSCESS W/O BLEEDING Status: Acute Qualifiers: Diverticulitis bleeding: without bleeding Diverticulitis complication: without perforation or abscess Qualified Code(s): K57.32 - Diverticulitis of large intestine without perforation or abscess without bleeding (6) GERD (gastroesophageal reflux disease) Code(s): K21.9 - GASTRO-ESOPHAGEAL REFLUX DISEASE WITHOUT ESOPHAGITIS Status: Acute (7) Pacemaker Code(s): Z95.0 - PRESENCE OF CARDIAC PACEMAKER Status: Acute (8) A-fib Code(s): I48.91 - UNSPECIFIED ATRIAL FIBRILLATION Status: Chronic (9) H/O mechanical aortic valve replacement Code(s): Z95.2 - PRESENCE OF PROSTHETIC HEART VALVE Status: Chronic (10) HLD (hyperlipidemia) Code(s): E78.5 - HYPERLIPIDEMIA, UNSPECIFIED Status: Chronic (11) HTN (hypertension) Code(s): I10 - ESSENTIAL (PRIMARY) HYPERTENSION Status: Chronic Qualifiers: Hypertension type: unspecified Qualified Code(s): I10 - Essential (primary ) hypertension - Plan Plan: #Hyperkalemia - 6.0 -> 5.5 -> 5.3 this AM - s/p kayexelate - NS at 150ml/hr - mag WNL - will re-check in AM - Dr. Ly consulted, recs appreciated # TRISTAN - Cr 3.47 -> 2.9, baseline 0.8-1.4 - Renal US WNL - suspect dehydration 2/2 gastroenteritis on top of chronic diarrhea - Dr. Ly consulted from ED, recs appreciated # Elevated INR - held warfarin - 4.4 -> 4.7 - will discuss vitamin K on rounds, no signs of acute bleeding on exam # Chronic Diarrhea - normally has 3 loose stools per day, this is unchanged last few days - suspect superimposed viral gastroenteritis - s/p kayexelate - flu negative # CHF not in acute exacerbation - cautious rehydration - EF 50-55% in apr 2017 # Atrial fibrillation rate-controlled, Aortic valve replacement - hold warfarin - on multaq, diltiazem - no events on tele overnight, K improved, will transfer to medical PCP: Black Fluids: NS 150ml/hr Diet: regular Code: full Dispo: 1-2 days Addendum - Attending - Attending Attestation Date/Time: 07/29/18 8000 I personally evaluated the patient and discussed the management with Dr. Patel. I agree with the History, Examination, Assessment and Plan documented above with any addition or exceptions noted below. INR supratherapuetic, will hold coumadin. Potassium is down-trending after kayexelate. Continue to trend. Creatinine is improving. Dr. Ly was consulted by ER. Will transfer to [facility].
[2018-07-29] MEDS: Dronedarone HCl 400 MG TAB PO SCH ×2 (09:24→17:48)
[2018-07-29] MEDS: Fish Oil 1,000 MG CAP PO SCH ×2 (09:26→20:53)
[2018-07-29] MEDS: Vit A,C & E/Lutein/Minerals Tablet PO SCH (09:26)
[2018-07-29] MEDS: Lactinex Tablet PO SCH ×2 (09:26→20:53)
[2018-07-29] MEDS: Montelukast Sodium 10 mg Tablet PO SCH (20:48)
[2018-07-29] MEDS: Gabapentin 300 MG CAP PO SCH (20:52)
[2018-07-29] MEDS: Zolpidem Tartrate 5 MG TAB PO PRN (20:52)
[2018-07-29] MEDS: Rosuvastatin 5 MG TAB PO SCH (21:00)
[2018-07-30 05:14] LABS: INR-International Normal Ratio 3.7; Prothrombin Time 36.3 SEC (12.0-14.7)
[2018-07-30 05:16] LABS: Hemoglobin 9.7 g/dL (12.0-16.0); Mean Corpuscular HGB CONC 33.3 g/dL (32.0-36.0); Mean Corpuscular Volume 93.1 fL (78.0-98.0); Mean Platelet Volume 8.9 fL (7.4-10.4); Platelet Count 113 thou/uL (130-400); RBC Distribution Width 12.5 % (11.5-14.5); Red Blood Cell (RBC) Count 3.12 mill/uL (4.20-5.40); White Blood Cell (WBC) Count 5.4 thou/uL (4.8-10.8)
[2018-07-30 05:22] LABS: ALT (SGPT) Less than 7 U/L (8-55); AST (SGOT) 19 U/L (5-34); Albumin 3.1 g/dL (3.4-4.8); Alkaline Phosphatase 39 U/L (40-150); Anion Gap 10 mmol/L (10-20); BUN (Urea Nitrogen) 41 mg/dL (9.8-20.1); Bilirubin, Total 0.3 mg/dL (0.2-1.2); Calc. Creatinine Clearance 29 mL/min (70-130); Calcium 8.2 mg/dL (7.8-10.44); Carbon Dioxide 18 mmol/L (23-31); Chloride 117 mmol/L (98-107); Estimated GFR-MDRD 20; Globulin 2.6 g/dL (2.4-3.5); Glucose 80 mg/dL (83-110); Potassium 5.6 mmol/L (3.5-5.1); Protein, Total 5.7 g/dL (6.0-8.3); Sodium 139 mmol/L (136-145)
[2018-07-30] MEDS: Sodium Chloride 0.9% 1,000 ML IV SCH (08:24)
[2018-07-30] MEDS: Fish Oil 1,000 MG CAP PO SCH (08:27)
[2018-07-30] MEDS: Lactinex Tablet PO SCH (08:27)
--- NOTE | 2018-07-30 08:27 | PDOC.FM ---
- Subjective Subjective: This morning patient states she is feeling some general maliase. She denies diarrhea overnight. She tolerated supper w/o N/V. She is pre-occupied about her potassium coming back high this morning but otherwise feeling well. She denies abdominal pain. Denies burning or blood with urination. She was able to walk up and down the hallway with PT yesterday without difficulty. - Objective Vital Signs & Weight: Vital Signs (12 hours) Temp Pulse Resp BP Pulse Ox 07/30/18 04:00 97.4 F L 67 18 107/75 94 L 07/30/18 00:16 93 L 07/30/18 00:00 98.5 F 67 12 116/53 L 85 L Weight Weight 100.244 kg I&O: 07/29/18 07/30/18 07/31/18 06:59 06:59 06:59 Intake Total 1440 3050 Output Total 400 Balance 1040 3050 Result Diagrams: 07/30/18 04:50 07/30/18 10:55 Phys Exam - Physical Examination Constitutional: NAD HEENT: PERRLA, moist MMs Neck: no nodes, full ROM Respiratory: no wheezing, clear to auscultation bilateral Cardiovascular: RRR, no significant murmur Gastrointestinal: soft, non-tender, no distention, positive bowel sounds Musculoskeletal: pulses present non-pitting edema Neurological: non-focal, moves all 4 limbs Psychiatric: normal affect, A&O x 3 Skin: no rash, cap refill <2 seconds Dx/Plan (1) TRISTAN (acute kidney injury) Code(s): N17.9 - ACUTE KIDNEY FAILURE, UNSPECIFIED Status: Acute (2) Hyperkalemia Code(s): E87.5 - HYPERKALEMIA Status: Acute (3) Dehydration Code(s): E86.0 - DEHYDRATION Status: Acute (4) Diarrhea Code(s): R19.7 - DIARRHEA, UNSPECIFIED Status: Acute (5) Diverticulitis large intestine Code(s): K57.32 - DVTRCLI OF LG INT W/O PERFORATION OR ABSCESS W/O BLEEDING Status: Acute Qualifiers: Diverticulitis bleeding: without bleeding Diverticulitis complication: without perforation or abscess Qualified Code(s): K57.32 - Diverticulitis of large intestine without perforation or abscess without bleeding (6) GERD (gastroesophageal reflux disease) Code(s): K21.9 - GASTRO-ESOPHAGEAL REFLUX DISEASE WITHOUT ESOPHAGITIS Status: Acute (7) Pacemaker Code(s): Z95.0 - PRESENCE OF CARDIAC PACEMAKER Status: Acute (8) A-fib Code(s): I48.91 - UNSPECIFIED ATRIAL FIBRILLATION Status: Chronic (9) H/O mechanical aortic valve replacement Code(s): Z95.2 - PRESENCE OF PROSTHETIC HEART VALVE Status: Chronic (10) HLD (hyperlipidemia) Code(s): E78.5 - HYPERLIPIDEMIA, UNSPECIFIED Status: Chronic (11) HTN (hypertension) Code(s): I10 - ESSENTIAL (PRIMARY) HYPERTENSION Status: Chronic Qualifiers: Hypertension type: unspecified Qualified Code(s): I10 - Essential (primary ) hypertension - Plan Plan: #Hyperkalemia - 6.0 -> 5.5 -> 5.3 -> 5.6 this AM - added another dose of kayexelate, re-check bmp at 1100 - NS at 100ml/hr - [facility] [place] - Dr. Ly saw the patient per request of ED, agreed with plan of care, gave consult to Dr. Borrego as patient plans to f/u with Dr. borrego outpt. # TRISTAN - Cr 3.47 -> 2.9-> 2.31, baseline 0.8-1.4 - Renal US WNL - suspect dehydration 2/2 gastroenteritis on top of chronic diarrhea - Dr. Borrego consulted, recs appreciated # Elevated INR - held warfarin - 4.4 -> 4.7 -> 3.7 - patient goal is 3.0, checks at home # Chronic Diarrhea - normally has 3 loose stools per day - none overnight - suspect superimposed viral gastroenteritis - s/p kayexelate x2 - flu negative # CHF not in acute exacerbation - cautious rehydration - EF 50-55% in apr 2017 # Atrial fibrillation rate-controlled, Aortic valve replacement - hold warfarin - on multaq, diltiazeml PCP: Black Fluids: NS 100ml/hr Diet: regular Code: full Dispo: 1-2 days Addendum - Attending - Attending Attestation Date/Time: 07/30/18 1411 I personally evaluated the patient and discussed the management with Dr. Patel. I agree with the History, Examination, Assessment and Plan documented above with any addition or exceptions noted below. The patient is feeling much better. Potassium elevated today, redosing with kayexelate and if it decreases will d/c home.
[2018-07-30] MEDS: Vit A,C & E/Lutein/Minerals Tablet PO SCH (08:28)
[2018-07-30 08:38] VITALS: BP 161/67; TEMP 98.1
[2018-07-30] MEDS: Dronedarone HCl 400 MG TAB PO SCH (09:18)
[2018-07-30 11:34] LABS: Anion Gap 12 mmol/L (10-20); BUN (Urea Nitrogen) 35 mg/dL (9.8-20.1); Calc. Creatinine Clearance 33 mL/min (70-130); Calcium 8.4 mg/dL (7.8-10.44); Carbon Dioxide 15 mmol/L (23-31); Chloride 116 mmol/L (98-107); Estimated GFR-MDRD 22; Glucose 92 mg/dL (83-110); Potassium 5.2 mmol/L (3.5-5.1); Sodium 138 mmol/L (136-145)
--- NOTE | 2018-07-31 04:44 | DIS ---
DATE OF ADMISSION: 07/28/2018 DATE OF DISCHARGE: 07/30/2018 RESIDENT: Ravindra Patel MD. ADMITTING ATTENDING: Eduardo Kay MD DISCHARGE ATTENDING: Kamala Odell MD CONSULTS: None. PROCEDURES: None. PRIMARY DIAGNOSIS: Hyperkalemia. SECONDARY DIAGNOSES: Elevated INR, chronic diarrhea, chronic kidney injury, congestive heart failure, present on admission not in acute exacerbation, atrial fibrillation rate controlled, aortic valve replacement, historical. DISCHARGE MEDICATIONS: Kayexalate 15 g once daily for 3 days. Otherwise, resume home meds. DISCONTINUED MEDICATIONS: None. HISTORY OF PRESENT ILLNESS AND HOSPITAL COURSE: This is an 78-year-old female, who was sent over from clinic for evaluation of dehydration. She stated that she has had 3 episodes of diarrhea a day, but this was not different from her usual. She states that she normally has 3 loose stools a day. Denied blood in the stools. She reported moderate nausea and vomiting for the last week or so, she had 3 episodes of vomiting in the last week. She reported chronic abdominal discomfort in the upper abdomen. Denied fever, chills, sweats or sick contacts. Denied burning with urination or blood in the urine. The patient was found to have hyperkalemia with potassium of 6.0 and elevated INR of 4.4 as well as acute kidney injury. The patient was admitted with IV fluid resuscitation. Warfarin was held throughout the time in the hospital. The patient was given Kayexalate during the hospitalization. Ultimately, on the date of discharge, the patients' INR had trended back down to 3.7. Discharge potassium was 5.2. Creatinine had improved to 2.15 from 2.94 at the time of admission. DISPOSITION: Stable. DISCHARGE INSTRUCTIONS: 1. Location: Home. 2. Diet: Regular. 3. Activity: As tolerated. 4. Followup: With Dr. Odell in 2 to 3 days. Recommend checking potassium in 2 to 3 days. Attending addendum: Dr. Odell attending on record at time of discharge. Job ID: [id number] [id number]
== END 2018-07-30 13:20 | disposition home or self-care (01) | DRG 683 ==
LOC: ERS 10:46 → ERHOLD 17:46 → 2NO 19:41 → ONC 07-29 11:14
PROVIDERS: ADMIT Emergency Medicine; ATTEND Emergency Medicine
DX: N17.9 Acute kidney failure, unspecified (principal); K57.32 Diverticulitis of large intestine without perforation or abscess without bleeding; I48.91 Unspecified atrial fibrillation; I11.0 Hypertensive heart disease with heart failure; E87.5 Hyperkalemia; E86.0 Dehydration; K21.9 Gastro-esophageal reflux disease without esophagitis; E78.5 Hyperlipidemia, unspecified; I50.9 Heart failure, unspecified; R79.1 Abnormal coagulation profile; Z95.0 Presence of cardiac pacemaker; Z90.49 Acquired absence of other specified parts of digestive tract; Z90.710 Acquired absence of both cervix and uterus; Z98.890 Other specified postprocedural states; Z95.2 Presence of prosthetic heart valve
CPT/HCPCS: 36415; 71046; 76770; 80048; 80053; 81003; 83605; 83690; 83735; 84100; 84484; 85025; 85027; 85610; 85730; 87086; 87804; 93005; 96361; 96372; 96374; 96375; C9113; J2405; Q0162